=== PATIENT | female | born 1955 | race Caucasian/White ===

== ENCOUNTER 2021-05-03 12:09 | Inpatient (IN) | payer MEDICAID, MEDICARE ==
[2021-05-03] MEDS ORDERED: Sodium Chloride 0.9% 1,000 ML IV SCH (12:30)
--- NOTE | 2021-05-03 12:40 | EDM.PDOC ---
ED HPI GENERAL MEDICAL PROBLEM - General Chief Complaint: Respiratory Problem Stated Complaint: COUGH, SOB, FEVER Time Seen by Provider: 05/03/21 12:10 Source of Information: Reports: Patient History Limitations: Reports: No Limitations - History of Present Illness INITIAL COMMENTS - FREE TEXT/NARRATIVE: Patient has been ill with upper respiratory symptoms, cough, fever to 102, sinus congestion and loss of taste and smell for the last 6 days. She has been treating it with over the counter medications and tylenol. Last dose yesterday as her stomach has become upset from this and she is having dry heaves to even water. No diarrhea, no abdominal pain, and still making urine. Has not had covid, has not had vaccine. He son is also sick, but after she was. Has copd and has a rescue inhaler. Not on cpap or oxygen. 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, NSAIDS - Related Data Allergies Allergy/AdvReac Type Severity Reaction Status Date / Time No Known Allergies Allergy Verified 05/03/21 12:14 Home Meds: Home Meds atorvaSTATin Calcium [Atorvastatin Calcium] 20 mg PO DAILY 05/03/21 [History] hydroCHLOROthiazide [Hydrochlorothiazide] 25 mg PO DAILY 05/03/21 [History] Past Medical History Cardiovascular History: Reports: High Cholesterol, Hypertension Respiratory History: Reports: COPD Social & Family History - Tobacco Use Tobacco Use Status *Q: Former Tobacco User Years of Tobacco use: 30 Packs/Tins Daily: 1 Used Tobacco, but Quit: Yes Month/Year Tobacco Last Used: 2006 - Caffeine Use Caffeine Use: Reports: Coffee - Recreational Drug Use Recreational Drug Use: No Drug Use in Last 12 Months: No ED ROS GENERAL - Review of Systems Review Of Systems: See Below Constitutional: Reports: Fever, Malaise, Weakness, Fatigue, Decreased Appetite HEENT: Reports: Other (loss of smell and taste) Respiratory: Reports: Shortness of Breath, Cough. Denies: Sputum, Hemoptysis Cardiovascular: Reports: Dyspnea on Exertion, Other (chest tightness). Denies: Edema, Lightheadedness Endocrine: Reports: Fatigue GI/Abdominal: Reports: Anorexia, Decreased Appetite, Nausea, Vomiting (( dry heaves)). Denies: Constipation, Diarrhea, Difficulty Swallowing : Reports: No Symptoms Musculoskeletal: Reports: Muscle Pain Skin: Reports: No Symptoms Neurological: Denies: No Symptoms Psychiatric: Reports: No Symptoms Hematologic/Lymphatic: Reports: No Symptoms Immunologic: Reports: No Symptoms ED EXAM, GENERAL - Physical Exam Exam: See Below Exam Limited By: No Limitations General Appearance: Alert, Mild Distress Eye Exam: Bilateral Eye: EOMI, PERRL Ears: Normal External Exam, Normal Canal, Normal TMs Nose: Normal Inspection, Normal Mucosa, No Blood Throat/Mouth: Normal Inspection, Normal Lips, Normal Teeth, Normal Voice Head: Atraumatic, Normocephalic Neck: Normal Inspection, Supple, Non-Tender, Full Range of Motion Respiratory/Chest: Other (tachypnea, decreased in the bases) Cardiovascular: Regular Rate, Rhythm, Tachycardia (rate of 100 but regular) GI/Abdominal: Normal Bowel Sounds, Soft, Non-Tender Back Exam: Normal Inspection, Full Range of Motion Extremities: Normal Inspection, Normal Range of Motion, Non-Tender, No Pedal Edema, Normal Capillary Refill, Other (slight tenting of the skin) Neurological: Alert, Oriented, Normal Cognition #1 Interpretation EKG Date: 05/03/21 Time: 13:22 Rhythm: NSR Rate (Beats/Min): 95 Fielding: Normal P-Wave: Present QT: Normal EKG Interpretation Comments: flipped, flattened t in V3-6, no previous to compare to Course - Vital Signs Last Recorded V/S: Last Vital Signs Temp 37.1 C 05/03/21 12:09 Pulse 100 05/03/21 12:09 Resp 22 H 05/03/21 12:09 BP 101/68 05/03/21 12:09 Pulse Ox 98 05/03/21 13:49 - Orders/Labs/Meds Orders: Active Orders 24 hr Category Date Time Status Peripheral IV Care [RC] . DIRECTED Care 05/03/21 12:22 Active Peripheral IV Care [RC] . DIRECTED Care 05/03/21 13:34 Active Chest 2V [CR] Stat Exams 05/03/21 12:11 Taken PE Chest [Ang Chest] [CT] Stat Exams 05/03/21 13:26 Ordered BLOOD GAS ARTERIAL [BG] Stat Lab 05/03/21 12:11 Ordered CULTURE BLOOD [BC] Stat Lab 05/03/21 13:20 Received CULTURE BLOOD [BC] Stat Lab 05/03/21 13:20 Received Sodium Chloride 0.9% [Normal Saline] 1,000 ml Med 05/03/21 12:30 Active IV ASDIRECTED Sodium Chloride 0.9% [Saline Flush] Med 05/03/21 12:22 Active 10 ml FLUSH ASDIRECTED PRN Sodium Chloride 0.9% [Saline Flush] Med 05/03/21 13:34 Active 10 ml FLUSH ASDIRECTED PRN Blood Culture x2 Reflex Set [OM.PC] Stat Oth 05/03/21 12:15 Ordered Peripheral IV Insertion Adult [OM.PC] Routine Oth 05/03/21 12:22 Ordered Peripheral IV Insertion Adult [OM.PC] Routine Oth 05/03/21 13:34 Ordered Medication Orders Sodium Chloride (Normal Saline) 1,000 mls @ 1,000 mls/hr IV ASDIRECTED MARY Last Admin: 05/03/21 13:46 Dose: 1,000 mls/hr Documented by: MARIXA Sodium Chloride (Sodium Chloride 0.9% 10 Ml Syringe) 10 ml FLUSH ASDIRECTED PRN PRN Reason: Keep Vein Open Sodium Chloride (Sodium Chloride 0.9% 10 Ml Syringe) 10 ml FLUSH ASDIRECTED PRN PRN Reason: Keep Vein Open Labs: Laboratory Tests 05/03/21 05/03/21 05/03/21 Range/Units 12:30 12:30 12:30 WBC 4.8 (4.0-10.2) K/uL RBC 4.72 (3.77-5.09) M/uL Hgb 14.2 (11.7-15.5) g/dL Hct 42.3 (34.0-46.0) % MCV 89.6 (84.0-98.0) fL MCH 30.1 (28.2-33.3) pg MCHC 33.6 (31.7-36.0) g/dL RDW 13.5 (11.2-14.1) % Plt Count 139 L (150-350) K/uL Neut % (Auto) 68.9 (45.0-80.0) % Lymph % (Auto) 23.8 (10.0-50.0) % Josephine % (Auto) 7.3 (2.0-14.0) % Eos % (Auto) 0.0 (0.0-5.0) % Baso % (Auto) 0.0 (0.0-2.0) % Neut # (Auto) 3.31 (1.40-7.00) K/uL Lymph # (Auto) 1.14 (0.50-3.50) K/uL Josephine # (Auto) 0.35 (0.00-1.00) K/uL Eos # (Auto) 0.00 (0.00-0.50) K/uL Baso # (Auto) 0.00 (0.00-0.20) K/uL D-Dimer, Quantitative 613 H (0-400) ng/mL Sodium 138 (136-145) mmol/L Potassium 3.3 L (3.5-5.1) mmol/L Chloride 101 (98-107) mmol/L Carbon Dioxide 28.6 (21.0-32.0) mmol/L Anion Gap 11.7 (7-15) meq/L BUN 25 H (7-18) mg/dL Creatinine 1.32 H (0.51-1.17) mg/dL Est Cr Clr Drug Dosing 36.20 mL/min Estimated GFR (MDRD) 40 mL/min Glucose 127 H (70-99) mg/dL Lactic Acid (0.4-2.0) mmol/L Calcium 8.0 L (8.5-10.1) mg/dL Total Bilirubin 0.5 (0.2-1.0) mg/dL AST 38 H (15-37) U/L ALT 37 (12-78) U/L Alkaline Phosphatase 86 (46-116) IU/L Troponin I High Sens 16 (<=51) ng/L C-Reactive Protein 2.5 H (<=0.9) mg/dL Total Protein 7.2 (6.4-8.2) g/dL Albumin 3.3 L (3.4-5.0) g/dL SARS-CoV-2 Ag (Rapid) (NEGATIVE) 05/03/21 05/03/21 Range/Units 12:30 13:00 WBC (4.0-10.2) K/uL RBC (3.77-5.09) M/uL Hgb (11.7-15.5) g/dL Hct (34.0-46.0) % MCV (84.0-98.0) fL MCH (28.2-33.3) pg MCHC (31.7-36.0) g/dL RDW (11.2-14.1) % Plt Count (150-350) K/uL Neut % (Auto) (45.0-80.0) % Lymph % (Auto) (10.0-50.0) % Josephine % (Auto) (2.0-14.0) % Eos % (Auto) (0.0-5.0) % Baso % (Auto) (0.0-2.0) % Neut # (Auto) (1.40-7.00) K/uL Lymph # (Auto) (0.50-3.50) K/uL Josephine # (Auto) (0.00-1.00) K/uL Eos # (Auto) (0.00-0.50) K/uL Baso # (Auto) (0.00-0.20) K/uL D-Dimer, Quantitative (0-400) ng/mL Sodium (136-145) mmol/L Potassium (3.5-5.1) mmol/L Chloride (98-107) mmol/L Carbon Dioxide (21.0-32.0) mmol/L Anion Gap (7-15) meq/L BUN (7-18) mg/dL Creatinine (0.51-1.17) mg/dL Est Cr Clr Drug Dosing mL/min Estimated GFR (MDRD) mL/min Glucose (70-99) mg/dL Lactic Acid 1.3 (0.4-2.0) mmol/L Calcium (8.5-10.1) mg/dL Total Bilirubin (0.2-1.0) mg/dL AST (15-37) U/L ALT (12-78) U/L Alkaline Phosphatase (46-116) IU/L Troponin I High Sens (<=51) ng/L C-Reactive Protein (<=0.9) mg/dL Total Protein (6.4-8.2) g/dL Albumin (3.4-5.0) g/dL SARS-CoV-2 Ag (Rapid) Positive A (NEGATIVE) Meds: Medications Generic Name Dose Route Start Last Admin Trade Name Freq PRN Reason Stop Dose Admin Sodium Chloride 1,000 mls @ 1,000 mls/hr 05/03/21 12:30 05/03/21 13:46 Normal Saline IV 1,000 mls/hr ASDIRECTED MARY Administration Sodium Chloride 10 ml 05/03/21 12:22 Sodium Chloride 0.9% 10 Ml Syringe FLUSH ASDIRECTED PRN Keep Vein Open Sodium Chloride 10 ml 05/03/21 13:34 Sodium Chloride 0.9% 10 Ml Syringe FLUSH ASDIRECTED PRN Keep Vein Open Discontinued Medications Generic Name Dose Route Start Last Admin Trade Name Freq PRN Reason Stop Dose Admin Iopamidol 100 ml 05/03/21 13:37 Iopamidol 755 Mg/Ml 100 Ml Bottle IVPUSH 05/03/21 13:38 ONETIME STA - Radiology Interpretation Free Text/Narrative:: x-ray with patchy airspace opacities in the bilateral lower lungs concerning for pneumonia or aspiration, read by radiology Ct pending at time of admission - Re-Assessments/Exams Free Text/Narrative Re-Assessment/Exam: 05/03/21 13:41 Concern for COVID 19, will get rapid test. slightly dehydrated. will give IV fluids one liter bolus. Hypoxic on room air at 88% will attempt to get ABG, blood cultures x 2, will place oxygen on at 2 lpm. In isolation. ddimer is elevated will get CT PE protocol. 05/03/21 14:08 Positive for Covid 19, needs admission for decadron and remdesivir. CT angio pending at time of admission. use the ER H & P as admission H & P 05/03/21 14:15 Will also po replace potassium at admission, O2, give 5 day course of remdesivir and oral decadron. Will treat PE if positive. Departure - Departure Time of Disposition: 14:09 Disposition: Admitted As Inpatient 66 Condition: Fair Clinical Impression: Hypokalemia, Acute hypoxemic respiratory failure due to COVID-19 Clinical Impression: (Ruled Out): Hypokaluria - Discharge Information Sepsis Event Note (ED) - Evaluation Sepsis Screening Result: Possible Sepsis Risk - Focused Exam Vital Signs: Vital Signs Temp Pulse Resp BP Pulse Ox Pulse Ox 05/03/21 13:49 98 05/03/21 12:09 37.1 C 100 22 H 101/68 89 L - My Orders Last 24 Hours: My Active Orders 05/03/21 12:11 Chest 2V [CR] Stat BLOOD GAS ARTERIAL [BG] Stat 05/03/21 12:15 Blood Culture x2 Reflex Set [OM.PC] Stat 05/03/21 12:22 Peripheral IV Care [RC] . DIRECTED Sodium Chloride 0.9% [Saline Flush] 10 ml FLUSH ASDIRECTED PRN Peripheral IV Insertion Adult [OM.PC] Routine 05/03/21 12:30 Sodium Chloride 0.9% [Normal Saline] 1,000 ml IV ASDIRECTED 05/03/21 13:20 CULTURE BLOOD [BC] Stat CULTURE BLOOD [BC] Stat 05/03/21 13:26 PE Chest [Ang Chest] [CT] Stat 05/03/21 13:34 Peripheral IV Care [RC] . DIRECTED Sodium Chloride 0.9% [Saline Flush] 10 ml FLUSH ASDIRECTED PRN Peripheral IV Insertion Adult [OM.PC] Routine - Assessment/Plan Last 24 Hours: My Active Orders 05/03/21 12:11 Chest 2V [CR] Stat BLOOD GAS ARTERIAL [BG] Stat 05/03/21 12:15 Blood Culture x2 Reflex Set [OM.PC] Stat 05/03/21 12:22 Peripheral IV Care [RC] . DIRECTED Sodium Chloride 0.9% [Saline Flush] 10 ml FLUSH ASDIRECTED PRN Peripheral IV Insertion Adult [OM.PC] Routine 05/03/21 12:30 Sodium Chloride 0.9% [Normal Saline] 1,000 ml IV ASDIRECTED 05/03/21 13:20 CULTURE BLOOD [BC] Stat CULTURE BLOOD [BC] Stat 05/03/21 13:26 PE Chest [Ang Chest] [CT] Stat 05/03/21 13:34 Peripheral IV Care [RC] . DIRECTED Sodium Chloride 0.9% [Saline Flush] 10 ml FLUSH ASDIRECTED PRN Peripheral IV Insertion Adult [OM.PC] Routine
[2021-05-03] MEDS ORDERED: Sodium Chloride 0.9% 10 ML Syringe FLUSH PRN (13:34)
[2021-05-03] MEDS ORDERED: Iopamidol 755 Mg/ML 100 ML Bottle IVPUSH STA (13:37)
[2021-05-03 13:39] LABS: ANION GAP 11.7 meq/L (7-15)
[2021-05-03] MEDS ORDERED: Bisacodyl 5 MG Tab PO PRN (14:26)
[2021-05-03] MEDS ORDERED: Potassium Chloride 10 MEQ Tab.ER PO ONE (14:31)
[2021-05-03] MEDS ORDERED: REMDESIVIR 200 MG in Sodium Chloride 0.9% 250 ML IV ONE (14:31)
[2021-05-03] MEDS ORDERED: Albuterol 6.7 GM Inhaler INH PRN (14:51)
[2021-05-03] MEDS: Acetaminophen 325 MG Tab PO PRN (15:16)
[2021-05-03] MEDS: Dexamethasone 2 MG Tab PO SCH (15:17)
[2021-05-03] MEDS: Enoxaparin 40 MG/0.4 ML Syringe SUBCUT SCH (15:36)
[2021-05-03] MEDS: Sodium Chloride 0.9% 10 ML Syringe FLUSH SCH (15:37)
[2021-05-03] MEDS: Loperamide 2 MG Tab PO PRN (18:24)
[2021-05-04] MEDS: Enoxaparin 40 MG/0.4 ML Syringe SUBCUT SCH ×2 (03:29→15:42)
[2021-05-04] MEDS: Hydrochlorothiazide 25 MG Tab PO SCH (09:17)
[2021-05-04] MEDS: Acetaminophen 325 MG Tab PO PRN ×2 (09:17→23:17)
[2021-05-04] MEDS: Dexamethasone 2 MG Tab PO SCH (09:17)
[2021-05-04] MEDS: Potassium Chloride 20 MEQ Tab.ER PO SCH (09:17)
[2021-05-04] MEDS: atorvaSTATin 10 MG Tab PO SCH (09:17)
--- NOTE | 2021-05-04 12:30 | PCM.PN ---
- General Info Date of Service: 05/04/21 Admission Dx/Problem (Free Text): acute respiratory failure from covid 19 Subjective Update: Patient has had some diarrhea over night. some fevers and body aches. does desaturate with ambulation to the bathroom. Otherwise doing well. - Review of Systems General: Reports: Fever, Fatigue, Night Sweats HEENT: Reports: No Symptoms Pulmonary: Reports: Shortness of Breath, Cough. Denies: Sputum, Hemoptysis Cardiovascular: Reports: Dyspnea on Exertion. Denies: Chest Pain, Palpitations Gastrointestinal: Reports: Diarrhea Genitourinary: Reports: No Symptoms Musculoskeletal: Reports: Back Pain (upper back since prior to admission) Neurological: Reports: No Symptoms - Patient Data Vitals - Most Recent: Last Vital Signs Temp 37.1 C 05/04/21 08:00 Pulse 85 05/04/21 08:00 Resp 20 05/04/21 08:00 BP 126/93 H 05/04/21 08:00 Pulse Ox 91 L 05/04/21 08:00 Weight - Most Recent: 101.151 kg I&O - Last 24 Hours: Intake & Output 05/03/21 05/04/21 05/04/21 22:59 06:59 14:59 Intake Total 1695 Balance 1695 Lab Results Last 24 Hours: Laboratory Results - last 24 hr 05/03/21 05/03/21 05/03/21 Range/Units 12:30 12:30 12:30 WBC 4.8 (4.0-10.2) K/uL RBC 4.72 (3.77-5.09) M/uL Hgb 14.2 (11.7-15.5) g/dL Hct 42.3 (34.0-46.0) % MCV 89.6 (84.0-98.0) fL MCH 30.1 (28.2-33.3) pg MCHC 33.6 (31.7-36.0) g/dL RDW 13.5 (11.2-14.1) % Plt Count 139 L (150-350) K/uL Neut % (Auto) 68.9 (45.0-80.0) % Lymph % (Auto) 23.8 (10.0-50.0) % [place] % (Auto) 7.3 (2.0-14.0) % Eos % (Auto) 0.0 (0.0-5.0) % Baso % (Auto) 0.0 (0.0-2.0) % Neut # (Auto) 3.31 (1.40-7.00) K/uL Lymph # (Auto) 1.14 (0.50-3.50) K/uL [place] # (Auto) 0.35 (0.00-1.00) K/uL Eos # (Auto) 0.00 (0.00-0.50) K/uL Baso # (Auto) 0.00 (0.00-0.20) K/uL D-Dimer, Quantitative 613 H (0-400) ng/mL Sodium 138 (136-145) mmol/L Potassium 3.3 L (3.5-5.1) mmol/L Chloride 101 (98-107) mmol/L Carbon Dioxide 28.6 (21.0-32.0) mmol/L Anion Gap 11.7 (7-15) meq/L BUN 25 H (7-18) mg/dL Creatinine 1.32 H (0.51-1.17) mg/dL Est Cr Clr Drug Dosing 36.20 mL/min Estimated GFR (MDRD) 40 mL/min Glucose 127 H (70-99) mg/dL Lactic Acid (0.4-2.0) mmol/L Calcium 8.0 L (8.5-10.1) mg/dL Magnesium (1.8-2.4) mg/dL Total Bilirubin 0.5 (0.2-1.0) mg/dL Direct Bilirubin (0.0-0.2) mg/dL AST 38 H (15-37) U/L ALT 37 (12-78) U/L Alkaline Phosphatase 86 (46-116) IU/L Troponin I High Sens 16 (<=51) ng/L C-Reactive Protein 2.5 H (<=0.9) mg/dL Total Protein 7.2 (6.4-8.2) g/dL Albumin 3.3 L (3.4-5.0) g/dL Specimen Type Urine Color Urine Appearance Urine pH (5.0-9.0) Ur Specific [place] (1.005-1.030) Urine Protein (NEGATIVE) mg/dL Urine Glucose (UA) (NEGATIVE) mg/dL Urine Ketones (NEGATIVE) mg/dL Urine Occult Blood (NEGATIVE) Urine Nitrite (NEGATIVE) Urine Bilirubin (NEGATIVE) Urine Urobilinogen (0.2-1.0) E.U./dL Ur Leukocyte Esterase (NEGATIVE) Urine RBC /HPF Urine WBC /HPF Ur Epithelial Cells /LPF Urine Bacteria (NONE TO FEW) /HPF Urine Mucus (NEGATIVE) /LPF SARS-CoV-2 Ag (Rapid) (NEGATIVE) 05/03/21 05/03/21 05/03/21 Range/Units 12:30 13:00 16:30 WBC (4.0-10.2) K/uL RBC (3.77-5.09) M/uL Hgb (11.7-15.5) g/dL Hct (34.0-46.0) % MCV (84.0-98.0) fL MCH (28.2-33.3) pg MCHC (31.7-36.0) g/dL RDW (11.2-14.1) % Plt Count (150-350) K/uL Neut % (Auto) (45.0-80.0) % Lymph % (Auto) (10.0-50.0) % [place] % (Auto) (2.0-14.0) % Eos % (Auto) (0.0-5.0) % Baso % (Auto) (0.0-2.0) % Neut # (Auto) (1.40-7.00) K/uL Lymph # (Auto) (0.50-3.50) K/uL [place] # (Auto) (0.00-1.00) K/uL Eos # (Auto) (0.00-0.50) K/uL Baso # (Auto) (0.00-0.20) K/uL D-Dimer, Quantitative (0-400) ng/mL Sodium (136-145) mmol/L Potassium (3.5-5.1) mmol/L Chloride (98-107) mmol/L Carbon Dioxide (21.0-32.0) mmol/L Anion Gap (7-15) meq/L BUN (7-18) mg/dL Creatinine (0.51-1.17) mg/dL Est Cr Clr Drug Dosing mL/min Estimated GFR (MDRD) mL/min Glucose (70-99) mg/dL Lactic Acid 1.3 (0.4-2.0) mmol/L Calcium (8.5-10.1) mg/dL Magnesium (1.8-2.4) mg/dL Total Bilirubin (0.2-1.0) mg/dL Direct Bilirubin (0.0-0.2) mg/dL AST (15-37) U/L ALT (12-78) U/L Alkaline Phosphatase (46-116) IU/L Troponin I High Sens (<=51) ng/L C-Reactive Protein (<=0.9) mg/dL Total Protein (6.4-8.2) g/dL Albumin (3.4-5.0) g/dL Specimen Type Urincc Urine Color Yellow Urine Appearance Slightly cloudy Urine pH 6.5 (5.0-9.0) Ur Specific [place] 1.010 (1.005-1.030) Urine Protein Trace H (NEGATIVE) mg/dL Urine Glucose (UA) Negative (NEGATIVE) mg/dL Urine Ketones Negative (NEGATIVE) mg/dL Urine Occult Blood Negative (NEGATIVE) Urine Nitrite Negative (NEGATIVE) Urine Bilirubin Negative (NEGATIVE) Urine Urobilinogen 1.0 (0.2-1.0) E.U./dL Ur Leukocyte Esterase Negative (NEGATIVE) Urine RBC 0-5 /HPF Urine WBC 0-5 /HPF Ur Epithelial Cells Few /LPF Urine Bacteria Few (NONE TO FEW) /HPF Urine Mucus Few H (NEGATIVE) /LPF SARS-CoV-2 Ag (Rapid) Positive A (NEGATIVE) 05/04/21 05/04/21 Range/Units 08:10 08:10 WBC (4.0-10.2) K/uL RBC (3.77-5.09) M/uL Hgb (11.7-15.5) g/dL Hct (34.0-46.0) % MCV (84.0-98.0) fL MCH (28.2-33.3) pg MCHC (31.7-36.0) g/dL RDW (11.2-14.1) % Plt Count (150-350) K/uL Neut % (Auto) (45.0-80.0) % Lymph % (Auto) (10.0-50.0) % [place] % (Auto) (2.0-14.0) % Eos % (Auto) (0.0-5.0) % Baso % (Auto) (0.0-2.0) % Neut # (Auto) (1.40-7.00) K/uL Lymph # (Auto) (0.50-3.50) K/uL [place] # (Auto) (0.00-1.00) K/uL Eos # (Auto) (0.00-0.50) K/uL Baso # (Auto) (0.00-0.20) K/uL D-Dimer, Quantitative (0-400) ng/mL Sodium (136-145) mmol/L Potassium (3.5-5.1) mmol/L Chloride (98-107) mmol/L Carbon Dioxide (21.0-32.0) mmol/L Anion Gap (7-15) meq/L BUN (7-18) mg/dL Creatinine (0.51-1.17) mg/dL Est Cr Clr Drug Dosing mL/min Estimated GFR (MDRD) mL/min Glucose (70-99) mg/dL Lactic Acid (0.4-2.0) mmol/L Calcium (8.5-10.1) mg/dL Magnesium 2.2 (1.8-2.4) mg/dL Total Bilirubin (0.2-1.0) mg/dL Direct Bilirubin 0.1 (0.0-0.2) mg/dL AST (15-37) U/L ALT (12-78) U/L Alkaline Phosphatase (46-116) IU/L Troponin I High Sens (<=51) ng/L C-Reactive Protein (<=0.9) mg/dL Total Protein (6.4-8.2) g/dL Albumin (3.4-5.0) g/dL Specimen Type Urine Color Urine Appearance Urine pH (5.0-9.0) Ur Specific [place] (1.005-1.030) Urine Protein (NEGATIVE) mg/dL Urine Glucose (UA) (NEGATIVE) mg/dL Urine Ketones (NEGATIVE) mg/dL Urine Occult Blood (NEGATIVE) Urine Nitrite (NEGATIVE) Urine Bilirubin (NEGATIVE) Urine Urobilinogen (0.2-1.0) E.U./dL Ur Leukocyte Esterase (NEGATIVE) Urine RBC /HPF Urine WBC /HPF Ur Epithelial Cells /LPF Urine Bacteria (NONE TO FEW) /HPF Urine Mucus (NEGATIVE) /LPF SARS-CoV-2 Ag (Rapid) (NEGATIVE) Med Orders - Current: Current Medications Acetaminophen (Acetaminophen 325 Mg Tab) 650 mg PO Q4H PRN PRN Reason: Pain (Mild 1-3)/fever Last Admin: 05/04/21 09:17 Dose: 650 mg Documented by: Albuterol (Albuterol 6.7 Gm Inhaler) 0 gm INH Q2H PRN PRN Reason: Dyspnea Atorvastatin Calcium (Atorvastatin 10 Mg Tab) 20 mg PO DAILY [facility] Last Admin: 05/04/21 09:17 Dose: 20 mg Documented by: Benzonatate (Benzonatate 100 Mg Cap) 100 mg PO Q6H PRN PRN Reason: Cough Bisacodyl (Bisacodyl 5 Mg Tab) 5 mg PO DAILY PRN PRN Reason: Constipation Dexamethasone (Dexamethasone 2 Mg Tab) 6 mg PO DAILY [facility] Last Admin: 05/04/21 09:17 Dose: 6 mg Documented by: Enoxaparin Sodium (Enoxaparin 40 Mg/0.4 Ml Syringe) 40 mg SUBCUT Q12H [facility] Last Admin: 05/04/21 03:29 Dose: 40 mg Documented by: Hydrochlorothiazide (Hydrochlorothiazide 25 Mg Tab) 25 mg PO DAILY [facility] Last Admin: 05/04/21 09:17 Dose: 25 mg Documented by: Remdesivir 100 mg/ Sodium (Chloride) 100 mls @ 100 mls/hr IV Q24H [facility] Stop: 05/07/21 15:59 Loperamide HCl (Loperamide 2 Mg Tab) 2 mg PO Q4H PRN PRN Reason: Diarrhea Last Admin: 05/03/21 18:24 Dose: 2 mg Documented by: Ondansetron HCl (Ondansetron 4 Mg Tab.Dis) 4 mg PO Q4H PRN PRN Reason: Nausea/Vomiting Potassium Chloride (Potassium Chloride 20 Meq Tab.Er) 40 meq PO DAILY [facility] Last Admin: 05/04/21 09:17 Dose: 40 meq Documented by: Sodium Chloride (Sodium Chloride 0.9% 10 Ml Syringe) 10 ml FLUSH ASDIRECTED PRN PRN Reason: Keep Vein Open Sodium Chloride (Sodium Chloride 0.9% 10 Ml Syringe) 10 ml FLUSH ASDIRECTED PRN PRN Reason: Keep Vein Open Sodium Chloride (Sodium Chloride 0.9% 10 Ml Syringe) 30 ml FLUSH DAILY@1600 MARY Stop: 05/07/21 16:01 Last Admin: 05/03/21 15:37 Dose: 30 ml Documented by: Discontinued Medications Sodium Chloride (Normal Saline) 1,000 mls @ 1,000 mls/hr IV ASDIRECTED MARY Last Admin: 05/03/21 13:46 Dose: 1,000 mls/hr Documented by: Remdesivir 200 mg/ Sodium (Chloride) 250 mls @ 250 mls/hr IV ONETIME ONE Stop: 05/03/21 15:30 Last Admin: 05/03/21 15:37 Dose: 250 mls/hr Documented by: Iopamidol (Iopamidol 755 Mg/Ml 100 Ml Bottle) 100 ml IVPUSH ONETIME STA Stop: 05/03/21 13:38 Last Admin: 05/03/21 14:31 Dose: 100 ml Documented by: Potassium Chloride (Potassium Chloride 10 Meq Tab.Er) 40 meq PO ONETIME ONE Stop: 05/03/21 14:32 Last Admin: 05/03/21 15:17 Dose: 40 meq Documented by: - Exam Quality Assessment: Supplemental Oxygen (2 lpm) General: Alert, Oriented HEENT: Pupils Equal, Pupils Reactive Neck: Supple Lungs: Decreased Breath Sounds (bases) Cardiovascular: Regular Rate, Regular Rhythm GI/Abdominal Exam: Normal Bowel Sounds, Soft, Non-Tender Extremities: Normal Inspection, Normal Range of Motion, Non-Tender - Patient Data Lab Results Last 24 hrs: Laboratory Results - last 24 hr 05/03/21 05/03/21 05/03/21 Range/Units 12:30 12:30 12:30 WBC 4.8 (4.0-10.2) K/uL RBC 4.72 (3.77-5.09) M/uL Hgb 14.2 (11.7-15.5) g/dL Hct 42.3 (34.0-46.0) % MCV 89.6 (84.0-98.0) fL MCH 30.1 (28.2-33.3) pg MCHC 33.6 (31.7-36.0) g/dL RDW 13.5 (11.2-14.1) % Plt Count 139 L (150-350) K/uL Neut % (Auto) 68.9 (45.0-80.0) % Lymph % (Auto) 23.8 (10.0-50.0) % [place] % (Auto) 7.3 (2.0-14.0) % Eos % (Auto) 0.0 (0.0-5.0) % Baso % (Auto) 0.0 (0.0-2.0) % Neut # (Auto) 3.31 (1.40-7.00) K/uL Lymph # (Auto) 1.14 (0.50-3.50) K/uL [place] # (Auto) 0.35 (0.00-1.00) K/uL Eos # (Auto) 0.00 (0.00-0.50) K/uL Baso # (Auto) 0.00 (0.00-0.20) K/uL D-Dimer, Quantitative 613 H (0-400) ng/mL Sodium 138 (136-145) mmol/L Potassium 3.3 L (3.5-5.1) mmol/L Chloride 101 (98-107) mmol/L Carbon Dioxide 28.6 (21.0-32.0) mmol/L Anion Gap 11.7 (7-15) meq/L BUN 25 H (7-18) mg/dL Creatinine 1.32 H (0.51-1.17) mg/dL Est Cr Clr Drug Dosing 36.20 mL/min Estimated GFR (MDRD) 40 mL/min Glucose 127 H (70-99) mg/dL Lactic Acid (0.4-2.0) mmol/L Calcium 8.0 L (8.5-10.1) mg/dL Magnesium (1.8-2.4) mg/dL Total Bilirubin 0.5 (0.2-1.0) mg/dL Direct Bilirubin (0.0-0.2) mg/dL AST 38 H (15-37) U/L ALT 37 (12-78) U/L Alkaline Phosphatase 86 (46-116) IU/L Troponin I High Sens 16 (<=51) ng/L C-Reactive Protein 2.5 H (<=0.9) mg/dL Total Protein 7.2 (6.4-8.2) g/dL Albumin 3.3 L (3.4-5.0) g/dL Specimen Type Urine Color Urine Appearance Urine pH (5.0-9.0) Ur Specific [place] (1.005-1.030) Urine Protein (NEGATIVE) mg/dL Urine Glucose (UA) (NEGATIVE) mg/dL Urine Ketones (NEGATIVE) mg/dL Urine Occult Blood (NEGATIVE) Urine Nitrite (NEGATIVE) Urine Bilirubin (NEGATIVE) Urine Urobilinogen (0.2-1.0) E.U./dL Ur Leukocyte Esterase (NEGATIVE) Urine RBC /HPF Urine WBC /HPF Ur Epithelial Cells /LPF Urine Bacteria (NONE TO FEW) /HPF Urine Mucus (NEGATIVE) /LPF SARS-CoV-2 Ag (Rapid) (NEGATIVE) 05/03/21 05/03/21 05/03/21 Range/Units 12:30 13:00 16:30 WBC (4.0-10.2) K/uL RBC (3.77-5.09) M/uL Hgb (11.7-15.5) g/dL Hct (34.0-46.0) % MCV (84.0-98.0) fL MCH (28.2-33.3) pg MCHC (31.7-36.0) g/dL RDW (11.2-14.1) % Plt Count (150-350) K/uL Neut % (Auto) (45.0-80.0) % Lymph % (Auto) (10.0-50.0) % [place] % (Auto) (2.0-14.0) % Eos % (Auto) (0.0-5.0) % Baso % (Auto) (0.0-2.0) % Neut # (Auto) (1.40-7.00) K/uL Lymph # (Auto) (0.50-3.50) K/uL [place] # (Auto) (0.00-1.00) K/uL Eos # (Auto) (0.00-0.50) K/uL Baso # (Auto) (0.00-0.20) K/uL D-Dimer, Quantitative (0-400) ng/mL Sodium (136-145) mmol/L Potassium (3.5-5.1) mmol/L Chloride (98-107) mmol/L Carbon Dioxide (21.0-32.0) mmol/L Anion Gap (7-15) meq/L BUN (7-18) mg/dL Creatinine (0.51-1.17) mg/dL Est Cr Clr Drug Dosing mL/min Estimated GFR (MDRD) mL/min Glucose (70-99) mg/dL Lactic Acid 1.3 (0.4-2.0) mmol/L Calcium (8.5-10.1) mg/dL Magnesium (1.8-2.4) mg/dL Total Bilirubin (0.2-1.0) mg/dL Direct Bilirubin (0.0-0.2) mg/dL AST (15-37) U/L ALT (12-78) U/L Alkaline Phosphatase (46-116) IU/L Troponin I High Sens (<=51) ng/L C-Reactive Protein (<=0.9) mg/dL Total Protein (6.4-8.2) g/dL Albumin (3.4-5.0) g/dL Specimen Type Urincc Urine Color Yellow Urine Appearance Slightly cloudy Urine pH 6.5 (5.0-9.0) Ur Specific [place] 1.010 (1.005-1.030) Urine Protein Trace H (NEGATIVE) mg/dL Urine Glucose (UA) Negative (NEGATIVE) mg/dL Urine Ketones Negative (NEGATIVE) mg/dL Urine Occult Blood Negative (NEGATIVE) Urine Nitrite Negative (NEGATIVE) Urine Bilirubin Negative (NEGATIVE) Urine Urobilinogen 1.0 (0.2-1.0) E.U./dL Ur Leukocyte Esterase Negative (NEGATIVE) Urine RBC 0-5 /HPF Urine WBC 0-5 /HPF Ur Epithelial Cells Few /LPF Urine Bacteria Few (NONE TO FEW) /HPF Urine Mucus Few H (NEGATIVE) /LPF SARS-CoV-2 Ag (Rapid) Positive A (NEGATIVE) 05/04/21 05/04/21 Range/Units 08:10 08:10 WBC (4.0-10.2) K/uL RBC (3.77-5.09) M/uL Hgb (11.7-15.5) g/dL Hct (34.0-46.0) % MCV (84.0-98.0) fL MCH (28.2-33.3) pg MCHC (31.7-36.0) g/dL RDW (11.2-14.1) % Plt Count (150-350) K/uL Neut % (Auto) (45.0-80.0) % Lymph % (Auto) (10.0-50.0) % [place] % (Auto) (2.0-14.0) % Eos % (Auto) (0.0-5.0) % Baso % (Auto) (0.0-2.0) % Neut # (Auto) (1.40-7.00) K/uL Lymph # (Auto) (0.50-3.50) K/uL [place] # (Auto) (0.00-1.00) K/uL Eos # (Auto) (0.00-0.50) K/uL Baso # (Auto) (0.00-0.20) K/uL D-Dimer, Quantitative (0-400) ng/mL Sodium (136-145) mmol/L Potassium (3.5-5.1) mmol/L Chloride (98-107) mmol/L Carbon Dioxide (21.0-32.0) mmol/L Anion Gap (7-15) meq/L BUN (7-18) mg/dL Creatinine (0.51-1.17) mg/dL Est Cr Clr Drug Dosing mL/min Estimated GFR (MDRD) mL/min Glucose (70-99) mg/dL Lactic Acid (0.4-2.0) mmol/L Calcium (8.5-10.1) mg/dL Magnesium 2.2 (1.8-2.4) mg/dL Total Bilirubin (0.2-1.0) mg/dL Direct Bilirubin 0.1 (0.0-0.2) mg/dL AST (15-37) U/L ALT (12-78) U/L Alkaline Phosphatase (46-116) IU/L Troponin I High Sens (<=51) ng/L C-Reactive Protein (<=0.9) mg/dL Total Protein (6.4-8.2) g/dL Albumin (3.4-5.0) g/dL Specimen Type Urine Color Urine Appearance Urine pH (5.0-9.0) Ur Specific [place] (1.005-1.030) Urine Protein (NEGATIVE) mg/dL Urine Glucose (UA) (NEGATIVE) mg/dL Urine Ketones (NEGATIVE) mg/dL Urine Occult Blood (NEGATIVE) Urine Nitrite (NEGATIVE) Urine Bilirubin (NEGATIVE) Urine Urobilinogen (0.2-1.0) E.U./dL Ur Leukocyte Esterase (NEGATIVE) Urine RBC /HPF Urine WBC /HPF Ur Epithelial Cells /LPF Urine Bacteria (NONE TO FEW) /HPF Urine Mucus (NEGATIVE) /LPF SARS-CoV-2 Ag (Rapid) (NEGATIVE) Result Diagrams: 05/03/21 12:30 05/03/21 12:30 Sepsis Event Note - Evaluation Sepsis Screening Result: Possible Sepsis Risk - Focused Exam Vital Signs: Vital Signs Temp Pulse Resp BP Pulse Ox 05/04/21 08:00 37.1 C 85 20 126/93 H 91 L - Problem List & Annotations (1) Acute hypoxemic respiratory failure due to COVID-19 SNOMED Code(s): 371893088 Code(s): U07.1 - COVID-19; J96.01 - ACUTE RESPIRATORY FAILURE WITH HYPOXIA Status: Acute Current Visit: Yes Annotation/Comment:: stable, receiving decadron and remdesivir, isolating well (2) Hypokalemia SNOMED Code(s): 87502051 Code(s): E87.6 - HYPOKALEMIA Status: Acute Current Visit: Yes Annotation/Comment:: given oral potatssium, will recheck tomorrow - Problem List Review Problem List Initiated/Reviewed/Updated: Yes - My Orders Last 24 Hours: My Active Orders 05/03/21 12:11 Chest 2V [CR] Stat 05/03/21 12:15 Blood Culture x2 Reflex Set [OM.PC] Stat 05/03/21 12:22 Sodium Chloride 0.9% [Saline Flush] 10 ml FLUSH ASDIRECTED PRN Peripheral IV Insertion Adult [OM.PC] Routine 05/03/21 13:20 CULTURE BLOOD [BC] Stat CULTURE BLOOD [BC] Stat 05/03/21 13:26 PE Chest [Ang Chest] [CT] Stat 05/03/21 13:34 Sodium Chloride 0.9% [Saline Flush] 10 ml FLUSH ASDIRECTED PRN Peripheral IV Insertion Adult [OM.PC] Routine 05/03/21 14:12 Admission Status [Patient Status] [ADT] Routine 05/03/21 14:26 Ambulate [RC] ASDIRECTED Height and Weight [RC] DAILY May Shower [RC] ASDIRECTED Oxygen Therapy [RC] 2300 Up ad Annika [RC] ASDIRECTED VTE/DVT Education [RC] PER UNIT ROUTINE Vital Signs [RC] 08,20 Acetaminophen [TylenoL] 650 mg PO Q4H PRN Ondansetron [Zofran ODT] 4 mg PO Q4H PRN bisacodyL [Dulcolax] 5 mg PO DAILY PRN Resuscitation Status Routine 05/03/21 14:27 Notify Provider Vital Signs [RC] ASDIRECTED Pulse Oximetry [RC] CONTINUOUS 05/03/21 14:45 dexAMETHasone 6 mg PO DAILY 05/03/21 14:49 Benzonatate [Tessalon Perles] 100 mg PO Q6H PRN Isolation [COMM] Routine 05/03/21 14:51 Albuterol [Proventil HFA] See Dose Instructions INH Q2H PRN 05/03/21 16:00 Enoxaparin [Lovenox] 40 mg SUBCUT Q12H Sodium Chloride 0.9% [Saline Flush] 30 ml FLUSH DAILY@1600 05/03/21 Dinner Regular Diet [DIET] 05/03/21 17:59 Loperamide [Imodium AD] 2 mg PO Q4H PRN 05/04/21 08:00 Potassium Chloride [Klor-Con M20] 40 meq PO DAILY atorvaSTATin [Lipitor] 20 mg PO DAILY hydroCHLOROthiazide 25 mg PO DAILY 05/04/21 15:00 Remdesivir 100 mg Sodium Chloride 0.9% [Normal Saline] 100 ml IV Q24H 05/05/21 05:11 COMPREHENSIVE METABOLIC PN,CMP [CHEM] AM 05/05/21 14:45 BILIRUBIN DIRECT [CHEM] DAILY 05/06/21 05:11 COMPREHENSIVE METABOLIC PN,CMP [CHEM] AM 05/06/21 14:45 BILIRUBIN DIRECT [CHEM] DAILY 05/07/21 05:11 COMPREHENSIVE METABOLIC PN,CMP [CHEM] AM 05/07/21 14:45 BILIRUBIN DIRECT [CHEM] DAILY 05/08/21 05:11 COMPREHENSIVE METABOLIC PN,CMP [CHEM] AM - Assessment Assessment:: continue cares. Labs tomorrow. maintaining decent O2 sats - Plan Plan:: continue cares
[2021-05-04] MEDS: REMDESIVIR 100 MG in Sodium Chloride 0.9% 100 ML IV SCH (15:42)
[2021-05-04] MEDS: Sodium Chloride 0.9% 10 ML Syringe FLUSH SCH (15:43)
--- NOTE | 2021-05-05 05:44 | PCM.PN ---
- General Info Date of Service: 05/05/21 Admission Dx/Problem (Free Text): acute respiratory failure due to covid 19 Subjective Update: doing well, continues to cough,. eating, doing her incentive spirometry Functional Status: Reports: Pain Controlled, Tolerating Diet, Incentive Spirometry - Review of Systems General: Reports: Fever, Fatigue, Malaise HEENT: Reports: No Symptoms Pulmonary: Reports: Shortness of Breath, Cough Cardiovascular: Reports: Dyspnea on Exertion Gastrointestinal: Reports: No Symptoms Genitourinary: Reports: No Symptoms Musculoskeletal: Reports: No Symptoms Neurological: Reports: No Symptoms Psychiatric: Reports: No Symptoms - Patient Data Vitals - Most Recent: Last Vital Signs Temp 37.0 C 05/04/21 20:00 Pulse 67 05/04/21 20:00 Resp 18 05/04/21 20:00 BP 132/66 05/04/21 20:00 Pulse Ox 95 05/04/21 20:00 Weight - Most Recent: 101.151 kg I&O - Last 24 Hours: Intake & Output 05/04/21 05/04/21 05/05/21 14:59 22:59 06:59 Intake Total 85 Balance 85 Lab Results Last 24 Hours: Laboratory Results - last 24 hr 05/04/21 05/04/21 Range/Units 08:10 08:10 Magnesium 2.2 (1.8-2.4) mg/dL Direct Bilirubin 0.1 (0.0-0.2) mg/dL [place]att Results Last 24 Hours: Microbiology 05/03/21 13:20 Aerobic Blood Culture - Preliminary Blood - Venous NO GROWTH AFTER 1 DAY Anaerobic Blood Culture - Preliminary NO GROWTH AFTER 1 DAY 05/03/21 13:20 Aerobic Blood Culture - Preliminary Blood - Venous - Lab Draw NO GROWTH AFTER 1 DAY Anaerobic Blood Culture - Preliminary NO GROWTH AFTER 1 DAY Med Orders - Current: Current Medications Acetaminophen (Acetaminophen 325 Mg Tab) 650 mg PO Q4H PRN PRN Reason: Pain (Mild 1-3)/fever Last Admin: 05/04/21 23:17 Dose: 650 mg Documented by: Albuterol (Albuterol 6.7 Gm Inhaler) 0 gm INH Q2H PRN PRN Reason: Dyspnea Atorvastatin Calcium (Atorvastatin 10 Mg Tab) 20 mg PO DAILY [facility]ARY Last Admin: 05/04/21 09:17 Dose: 20 mg Documented by: Benzonatate (Benzonatate 100 Mg Cap) 100 mg PO Q6H PRN PRN Reason: Cough Bisacodyl (Bisacodyl 5 Mg Tab) 5 mg PO DAILY PRN PRN Reason: Constipation Dexamethasone (Dexamethasone 2 Mg Tab) 6 mg PO DAILY [facility] Last Admin: 05/04/21 09:17 Dose: 6 mg Documented by: Enoxaparin Sodium (Enoxaparin 40 Mg/0.4 Ml Syringe) 40 mg SUBCUT Q12H [facility] Hydrochlorothiazide (Hydrochlorothiazide 25 Mg Tab) 25 mg PO DAILY [facility] Last Admin: 05/04/21 09:17 Dose: 25 mg Documented by: Remdesivir 100 mg/ Sodium (Chloride) 100 mls @ 100 mls/hr IV Q24H [facility] Stop: 05/07/21 15:59 Last Admin: 05/04/21 15:42 Dose: 100 mls/hr Documented by: Loperamide HCl (Loperamide 2 Mg Tab) 2 mg PO Q4H PRN PRN Reason: Diarrhea Last Admin: 05/03/21 18:24 Dose: 2 mg Documented by: Ondansetron HCl (Ondansetron 4 Mg Tab.Dis) 4 mg PO Q4H PRN PRN Reason: Nausea/Vomiting Potassium Chloride (Potassium Chloride 20 Meq Tab.Er) 40 meq PO DAILY [facility] Last Admin: 05/04/21 09:17 Dose: 40 meq Documented by: Sodium Chloride (Sodium Chloride 0.9% 10 Ml Syringe) 10 ml FLUSH ASDIRECTED PRN PRN Reason: Keep Vein Open Sodium Chloride (Sodium Chloride 0.9% 10 Ml Syringe) 10 ml FLUSH ASDIRECTED PRN PRN Reason: Keep Vein Open Sodium Chloride (Sodium Chloride 0.9% 10 Ml Syringe) 30 ml FLUSH DAILY@1600 [facility] Stop: 05/07/21 16:01 Last Admin: 05/04/21 15:43 Dose: 30 ml Documented by: Discontinued Medications Enoxaparin Sodium (Enoxaparin 40 Mg/0.4 Ml Syringe) 40 mg SUBCUT Q12H [facility] Last Admin: 05/04/21 15:42 Dose: 40 mg Documented by: Sodium Chloride (Normal Saline) 1,000 mls @ 1,000 mls/hr IV ASDIRECTED [facility] Last Admin: 05/03/21 13:46 Dose: 1,000 mls/hr Documented by: Remdesivir 200 mg/ Sodium (Chloride) 250 mls @ 250 mls/hr IV ONETIME ONE Stop: 05/03/21 15:30 Last Admin: 05/03/21 15:37 Dose: 250 mls/hr Documented by: Iopamidol (Iopamidol 755 Mg/Ml 100 Ml Bottle) 100 ml IVPUSH ONETIME STA Stop: 05/03/21 13:38 Last Admin: 05/03/21 14:31 Dose: 100 ml Documented by: Potassium Chloride (Potassium Chloride 10 Meq Tab.Er) 40 meq PO ONETIME ONE Stop: 05/03/21 14:32 Last Admin: 05/03/21 15:17 Dose: 40 meq Documented by: - Exam Quality Assessment: Supplemental Oxygen General: Alert, Oriented HEENT: Pupils Equal, Pupils Reactive Neck: Supple Lungs: Decreased Breath Sounds (minimal bases), Wheezing (minimal) Cardiovascular: Regular Rate, Regular Rhythm GI/Abdominal Exam: Normal Bowel Sounds, Soft, Non-Tender Extremities: Normal Inspection, No Pedal Edema - Patient Data Lab Results Last 24 hrs: Laboratory Results - last 24 hr 05/04/21 05/04/21 Range/Units 08:10 08:10 Magnesium 2.2 (1.8-2.4) mg/dL Direct Bilirubin 0.1 (0.0-0.2) mg/dL Result Diagrams: 05/03/21 12:30 05/03/21 12:30 [place]att Results Last 24 hrs: Microbiology 05/03/21 13:20 Aerobic Blood Culture - Preliminary Blood - Venous NO GROWTH AFTER 1 DAY Anaerobic Blood Culture - Preliminary NO GROWTH AFTER 1 DAY 05/03/21 13:20 Aerobic Blood Culture - Preliminary Blood - Venous - Lab Draw NO GROWTH AFTER 1 DAY Anaerobic Blood Culture - Preliminary NO GROWTH AFTER 1 DAY Sepsis Event Note - Evaluation Sepsis Screening Result: No Definite Risk - Focused Exam Vital Signs: Vital Signs Temp Pulse Resp BP Pulse Ox 05/04/21 20:00 37.0 C 67 18 132/66 95 - Problem List & Annotations (1) Acute hypoxemic respiratory failure due to COVID-19 SNOMED Code(s): 200171866 Code(s): U07.1 - COVID-19; J96.01 - ACUTE RESPIRATORY FAILURE WITH HYPOXIA Status: Acute Current Visit: Yes Annotation/Comment:: 05/05/2021 doing well, no increase oxygen needs. check labs today for concern for LFT changes stable, receiving decadron and remdesivir, isolating well (2) Hypokalemia SNOMED Code(s): 93216288 Code(s): E87.6 - HYPOKALEMIA Status: Acute Current Visit: Yes Annotation/Comment:: 05/05/2021 doing well, recheck today given oral potatssium, will recheck tomorrow - Problem List Review Problem List Initiated/Reviewed/Updated: Yes - My Orders Last 24 Hours: My Active Orders 05/04/21 08:00 Potassium Chloride [Klor-Con M20] 40 meq PO DAILY atorvaSTATin [Lipitor] 20 mg PO DAILY hydroCHLOROthiazide 25 mg PO DAILY 05/04/21 15:00 Remdesivir 100 mg Sodium Chloride 0.9% [Normal Saline] 100 ml IV Q24H 05/05/21 05:11 COMPREHENSIVE METABOLIC PN,CMP [CHEM] AM 05/05/21 08:00 Enoxaparin [Lovenox] 40 mg SUBCUT Q12H 05/05/21 14:45 BILIRUBIN DIRECT [CHEM] DAILY 05/06/21 05:11 COMPREHENSIVE METABOLIC PN,CMP [CHEM] AM 05/06/21 14:45 BILIRUBIN DIRECT [CHEM] DAILY 05/07/21 05:11 COMPREHENSIVE METABOLIC PN,CMP [CHEM] AM 05/07/21 14:45 BILIRUBIN DIRECT [CHEM] DAILY 05/08/21 05:11 COMPREHENSIVE METABOLIC PN,CMP [CHEM] AM - Assessment Assessment:: 05/05/2021 labs today, continue cares. Plan for home on 05/07, will need home O2 continue cares. Labs tomorrow. maintaining decent O2 sats - Plan Plan:: 05/05/2021 continue cares, plan for home o2 after 5th dose of remdesivir continue cares
[2021-05-05] MEDS: Dexamethasone 2 MG Tab PO SCH (08:14)
[2021-05-05] MEDS: Acetaminophen 325 MG Tab PO PRN ×4 (08:15→21:33)
[2021-05-05] MEDS: atorvaSTATin 10 MG Tab PO SCH (08:15)
[2021-05-05] MEDS: Hydrochlorothiazide 25 MG Tab PO SCH (08:15)
[2021-05-05] MEDS: Potassium Chloride 20 MEQ Tab.ER PO SCH (08:15)
[2021-05-05] MEDS: Enoxaparin 40 MG/0.4 ML Syringe SUBCUT SCH ×2 (08:16→21:34)
[2021-05-05] MEDS: Sodium Chloride 0.9% 10 ML Syringe FLUSH PRN ×2 (08:20→14:51)
[2021-05-05] MEDS: Benzonatate 100 MG Cap PO PRN ×3 (08:30→21:34)
[2021-05-05 08:31] LABS: ANION GAP 7.2 meq/L (7-15)
[2021-05-05] MEDS: REMDESIVIR 100 MG in Sodium Chloride 0.9% 100 ML IV SCH (14:50)
[2021-05-05] MEDS: Sodium Chloride 0.9% 10 ML Syringe FLUSH SCH (15:00)
[2021-05-06] MEDS: Benzonatate 100 MG Cap PO PRN ×3 (03:21→15:18)
[2021-05-06] MEDS: Acetaminophen 325 MG Tab PO PRN ×3 (03:21→15:18)
[2021-05-06] MEDS: Ondansetron 4 MG Tab.DIS PO PRN ×2 (03:26→20:33)
[2021-05-06] MEDS: Dexamethasone 2 MG Tab PO SCH (08:30)
[2021-05-06] MEDS: Enoxaparin 40 MG/0.4 ML Syringe SUBCUT SCH ×2 (08:30→20:27)
[2021-05-06] MEDS: Hydrochlorothiazide 25 MG Tab PO SCH (08:30)
[2021-05-06] MEDS: atorvaSTATin 10 MG Tab PO SCH (08:30)
[2021-05-06] MEDS: Potassium Chloride 20 MEQ Tab.ER PO SCH (08:30)
--- NOTE | 2021-05-06 08:39 | PCM.PN ---
- General Info Date of Service: 05/06/21 Admission Dx/Problem (Free Text): acute respiratory failure from COVID 19 Subjective Update: Patient has been slowly improving. using her incentive spirometer, cough is still tight but improves with breathing treatments. No fevers. Oxygen saturation staying close to 90 with ambulation which is an improvement from 84%. She is on day 4 of redemisvir and decadron. having headaches that are not completely taken care of by tylenol. otherwise stable - Review of Systems General: Reports: Weakness, Fatigue. Denies: Fever HEENT: Reports: Headaches, Sinus Congestion. Denies: Visual Changes Pulmonary: Reports: Shortness of Breath, Pleuritic Chest Pain, Cough, Wheezing Cardiovascular: Reports: Dyspnea on Exertion (improving). Denies: Chest Pain, Palpitations Gastrointestinal: Reports: No Symptoms Genitourinary: Reports: No Symptoms Musculoskeletal: Reports: Other (myalgias) Skin: Reports: No Symptoms Neurological: Reports: Headache, Other (continued loss of smell and taste). Denies: Confusion, Dizziness, Paresthesia, Seizure, Syncope - Patient Data Vitals - Most Recent: Last Vital Signs Temp 36.7 C 05/06/21 03:25 Pulse 69 05/06/21 03:25 Resp 18 05/05/21 20:00 BP 126/51 L 05/06/21 03:25 Pulse Ox 92 L 05/06/21 03:25 Weight - Most Recent: 101.151 kg I&O - Last 24 Hours: Intake & Output 05/05/21 05/06/21 05/06/21 22:59 06:59 14:59 Intake Total 100 300 Output Total 300 500 Balance -200 -200 Lab Results Last 24 Hours: Laboratory Results - last 24 hr 05/06/21 Range/Units 08:03 WBC 6.9 (4.0-10.2) K/uL RBC 4.60 (3.77-5.09) M/uL Hgb 13.8 (11.7-15.5) g/dL Hct 41.7 (34.0-46.0) % MCV 90.7 (84.0-98.0) fL MCH 30.0 (28.2-33.3) pg MCHC 33.1 (31.7-36.0) g/dL RDW 13.4 (11.2-14.1) % Plt Count 185 (150-350) K/uL Neut % (Auto) 68.0 (45.0-80.0) % Lymph % (Auto) 23.8 (10.0-50.0) % Shelby % (Auto) 8.2 (2.0-14.0) % Eos % (Auto) 0.0 (0.0-5.0) % Baso % (Auto) 0.0 (0.0-2.0) % Neut # (Auto) 4.66 (1.40-7.00) K/uL Lymph # (Auto) 1.63 (0.50-3.50) K/uL Shelby # (Auto) 0.56 (0.00-1.00) K/uL Eos # (Auto) 0.00 (0.00-0.50) K/uL Baso # (Auto) 0.00 (0.00-0.20) K/uL [facility]att Results Last 24 Hours: Microbiology 05/03/21 13:20 Aerobic Blood Culture - Preliminary Blood - Venous NO GROWTH AFTER 2 DAYS Anaerobic Blood Culture - Preliminary NO GROWTH AFTER 2 DAYS 05/03/21 13:20 Aerobic Blood Culture - Preliminary Blood - Venous - Lab Draw NO GROWTH AFTER 2 DAYS Anaerobic Blood Culture - Preliminary NO GROWTH AFTER 2 DAYS Med Orders - Current: Current Medications Acetaminophen (Acetaminophen 325 Mg Tab) 650 mg PO Q4H PRN PRN Reason: Pain (Mild 1-3)/fever Last Admin: 05/06/21 08:31 Dose: 650 mg Documented by: Albuterol (Albuterol 6.7 Gm Inhaler) 0 gm INH Q2H PRN PRN Reason: Dyspnea Atorvastatin Calcium (Atorvastatin 10 Mg Tab) 20 mg PO DAILY [facility] Last Admin: 05/06/21 08:30 Dose: 20 mg Documented by: Benzonatate (Benzonatate 100 Mg Cap) 100 mg PO Q6H PRN PRN Reason: Cough Last Admin: 05/06/21 03:21 Dose: 100 mg Documented by: Bisacodyl (Bisacodyl 5 Mg Tab) 5 mg PO DAILY PRN PRN Reason: Constipation Dexamethasone (Dexamethasone 2 Mg Tab) 6 mg PO DAILY [facility] Last Admin: 05/06/21 08:30 Dose: 6 mg Documented by: Enoxaparin Sodium (Enoxaparin 40 Mg/0.4 Ml Syringe) 40 mg SUBCUT Q12H [facility] Last Admin: 05/06/21 08:30 Dose: 40 mg Documented by: Hydrochlorothiazide (Hydrochlorothiazide 25 Mg Tab) 25 mg PO DAILY [facility] Last Admin: 05/06/21 08:30 Dose: 25 mg Documented by: Remdesivir 100 mg/ Sodium (Chloride) 100 mls @ 100 mls/hr IV Q24H [facility] Stop: 05/07/21 15:59 Last Admin: 05/05/21 14:50 Dose: 100 mls/hr Documented by: Ibuprofen (Ibuprofen 400 Mg Tab) 400 mg PO Q6H PRN PRN Reason: Pain Loperamide HCl (Loperamide 2 Mg Tab) 2 mg PO Q4H PRN PRN Reason: Diarrhea Last Admin: 05/03/21 18:24 Dose: 2 mg Documented by: Ondansetron HCl (Ondansetron 4 Mg Tab.Dis) 4 mg PO Q4H PRN PRN Reason: Nausea/Vomiting Last Admin: 05/06/21 03:26 Dose: 4 mg Documented by: Potassium Chloride (Potassium Chloride 20 Meq Tab.Er) 40 meq PO DAILY [facility] Last Admin: 05/06/21 08:30 Dose: 40 meq Documented by: Sodium Chloride (Sodium Chloride 0.9% 10 Ml Syringe) 10 ml FLUSH ASDIRECTED PRN PRN Reason: Keep Vein Open Last Admin: 05/05/21 14:51 Dose: 10 ml Documented by: Sodium Chloride (Sodium Chloride 0.9% 10 Ml Syringe) 10 ml FLUSH ASDIRECTED PRN PRN Reason: Keep Vein Open Sodium Chloride (Sodium Chloride 0.9% 10 Ml Syringe) 30 ml FLUSH DAILY@1600 [facility] Stop: 05/07/21 16:01 Last Admin: 05/05/21 15:00 Dose: 30 ml Documented by: Discontinued Medications Enoxaparin Sodium (Enoxaparin 40 Mg/0.4 Ml Syringe) 40 mg SUBCUT Q12H [facility] Last Admin: 05/04/21 15:42 Dose: 40 mg Documented by: Sodium Chloride (Normal Saline) 1,000 mls @ 1,000 mls/hr IV ASDIRECTED [facility] Last Admin: 05/03/21 13:46 Dose: 1,000 mls/hr Documented by: Remdesivir 200 mg/ Sodium (Chloride) 250 mls @ 250 mls/hr IV ONETIME ONE Stop: 05/03/21 15:30 Last Admin: 05/03/21 15:37 Dose: 250 mls/hr Documented by: Iopamidol (Iopamidol 755 Mg/Ml 100 Ml Bottle) 100 ml IVPUSH ONETIME STA Stop: 05/03/21 13:38 Last Admin: 05/03/21 14:31 Dose: 100 ml Documented by: Potassium Chloride (Potassium Chloride 10 Meq Tab.Er) 40 meq PO ONETIME ONE Stop: 05/03/21 14:32 Last Admin: 05/03/21 15:17 Dose: 40 meq Documented by: - Exam Quality Assessment: Supplemental Oxygen General: Alert, Oriented, Cooperative, Mild Distress HEENT: Pupils Equal, Pupils Reactive Neck: Supple Lungs: Decreased Breath Sounds (bases), Wheezing (clears a little with coughing) Cardiovascular: Regular Rate GI/Abdominal Exam: Normal Bowel Sounds Back Exam: Normal Inspection, Full Range of Motion Extremities: Normal Inspection, Non-Tender, No Pedal Edema Skin: Warm, Intact Psy/Mental Status: Alert, Normal Affect, Normal Mood - Patient Data Lab Results Last 24 hrs: Laboratory Results - last 24 hr 05/06/21 Range/Units 08:03 WBC 6.9 (4.0-10.2) K/uL RBC 4.60 (3.77-5.09) M/uL Hgb 13.8 (11.7-15.5) g/dL Hct 41.7 (34.0-46.0) % MCV 90.7 (84.0-98.0) fL MCH 30.0 (28.2-33.3) pg MCHC 33.1 (31.7-36.0) g/dL RDW 13.4 (11.2-14.1) % Plt Count 185 (150-350) K/uL Neut % (Auto) 68.0 (45.0-80.0) % Lymph % (Auto) 23.8 (10.0-50.0) % Shelby % (Auto) 8.2 (2.0-14.0) % Eos % (Auto) 0.0 (0.0-5.0) % Baso % (Auto) 0.0 (0.0-2.0) % Neut # (Auto) 4.66 (1.40-7.00) K/uL Lymph # (Auto) 1.63 (0.50-3.50) K/uL Shelby # (Auto) 0.56 (0.00-1.00) K/uL Eos # (Auto) 0.00 (0.00-0.50) K/uL Baso # (Auto) 0.00 (0.00-0.20) K/uL Result Diagrams: 05/06/21 08:03 05/05/21 07:49 [facility]att Results Last 24 hrs: Microbiology 05/03/21 13:20 Aerobic Blood Culture - Preliminary Blood - Venous NO GROWTH AFTER 2 DAYS Anaerobic Blood Culture - Preliminary NO GROWTH AFTER 2 DAYS 05/03/21 13:20 Aerobic Blood Culture - Preliminary Blood - Venous - Lab Draw NO GROWTH AFTER 2 DAYS Anaerobic Blood Culture - Preliminary NO GROWTH AFTER 2 DAYS Sepsis Event Note - Evaluation Sepsis Screening Result: No Definite Risk - Focused Exam Vital Signs: Vital Signs Temp Pulse BP Pulse Ox 05/06/21 03:25 36.7 C 69 126/51 L 92 L - Problem List & Annotations (1) Acute hypoxemic respiratory failure due to COVID-19 SNOMED Code(s): 177726429 Code(s): U07.1 - COVID-19; J96.01 - ACUTE RESPIRATORY FAILURE WITH HYPOXIA Status: Acute Current Visit: Yes Annotation/Comment:: 05/06/2021 improving, less desatuation with ambulating. Good while in bed and sleepiing at 2 lpm. Will attempt a few trials of oxygen off today. Have talked with discharge planning about home oxygen. continue other cares. Day 4 of r emdesivir and decadron treatment, plan for home discharge tomorrow after treatment 05/05/2021 doing well, no increase oxygen needs. check labs today for concern for LFT changes stable, receiving decadron and remdesivir, isolating well (2) Hypokalemia SNOMED Code(s): 34686896 Code(s): E87.6 - HYPOKALEMIA Status: Acute Current Visit: Yes Annotation/Comment:: 05/06/2021 stable 05/05/2021 doing well, recheck today given oral potatssium, will recheck tomorrow - Problem List Review Problem List Initiated/Reviewed/Updated: Yes - My Orders Last 24 Hours: My Active Orders 05/05/21 08:00 Enoxaparin [Lovenox] 40 mg SUBCUT Q12H 05/06/21 05:11 Chest 1V Frontal [CR] AM 05/06/21 08:03 BILIRUBIN DIRECT [CHEM] Routine COMPREHENSIVE METABOLIC PN,CMP [CHEM] AM 05/06/21 08:31 Ibuprofen [Motrin] 400 mg PO Q6H PRN 05/07/21 05:11 COMPREHENSIVE METABOLIC PN,CMP [CHEM] AM 05/07/21 14:45 BILIRUBIN DIRECT [CHEM] DAILY 05/08/21 05:11 COMPREHENSIVE METABOLIC PN,CMP [CHEM] AM - Assessment Assessment:: 05/06/2021. doing well, add motrin for headaches, trial off of oxygen if possible for short amounts today 05/05/2021 labs today, continue cares. Plan for home on 05/07, will need home O2 continue cares. Labs tomorrow. maintaining decent O2 sats - Plan Plan:: 05/06/2021 continue cares, trial off oxygen some today. plan for discharge tomorrow, possibly with home o2. 05/05/2021 continue cares, plan for home o2 after 5th dose of remdesivir continue cares
[2021-05-06 08:45] LABS: ANION GAP 7.3 meq/L (7-15)
[2021-05-06] MEDS: Ibuprofen 400 MG Tab PO PRN ×2 (08:45→20:33)
[2021-05-06] MEDS: REMDESIVIR 100 MG in Sodium Chloride 0.9% 100 ML IV SCH (15:18)
[2021-05-06] MEDS: Sodium Chloride 0.9% 10 ML Syringe FLUSH PRN (15:19)
[2021-05-06] MEDS: Sodium Chloride 0.9% 10 ML Syringe FLUSH SCH (17:51)
[2021-05-07] MEDS: Acetaminophen 325 MG Tab PO PRN (03:43)
[2021-05-07] MEDS: Benzonatate 100 MG Cap PO PRN ×2 (03:44→12:37)
[2021-05-07] MEDS: Dexamethasone 2 MG Tab PO SCH (07:59)
[2021-05-07] MEDS: Enoxaparin 40 MG/0.4 ML Syringe SUBCUT SCH ×2 (08:00→19:26)
[2021-05-07] MEDS: Potassium Chloride 20 MEQ Tab.ER PO SCH (08:00)
[2021-05-07] MEDS: Hydrochlorothiazide 25 MG Tab PO SCH (08:00)
[2021-05-07] MEDS: atorvaSTATin 10 MG Tab PO SCH (08:00)
[2021-05-07] MEDS: Sodium Chloride 0.9% 10 ML Syringe FLUSH PRN (08:01)
[2021-05-07 08:03] LABS: ANION GAP 6.4 meq/L (7-15)
[2021-05-07] MEDS: Loperamide 2 MG Tab PO PRN (12:37)
[2021-05-07] MEDS: REMDESIVIR 100 MG in Sodium Chloride 0.9% 100 ML IV SCH (13:59)
[2021-05-07] MEDS: Sodium Chloride 0.9% 10 ML Syringe FLUSH SCH (15:01)
--- NOTE | 2021-05-07 18:48 | PCM.PN ---
- General Info Date of Service: 05/07/21 Admission Dx/Problem (Free Text): 1)Acute Respiratory Failure 2)COVID 19 Subjective Update: Patient received Day#5 of Remdesivir and Decadron. She is still coughing and her course is complicated with the fact that she is now getting up to the bathroom f requently with diarrhea since she had take the anti-viral and she desats in the 85-86% range. She is using hte incentive spirometer, but cannot be off the oxygen for any extended period of time. Staff are working with Home [facility] to set up home oxygen. - Review of Systems General: Reports: Weakness, Fatigue HEENT: Reports: No Symptoms Pulmonary: Reports: Shortness of Breath, Cough Cardiovascular: Reports: No Symptoms Gastrointestinal: Reports: Diarrhea Genitourinary: Reports: No Symptoms Musculoskeletal: Reports: No Symptoms Skin: Reports: No Symptoms Neurological: Reports: No Symptoms Psychiatric: Reports: No Symptoms - Patient Data Vitals - Most Recent: Last Vital Signs Temp 36.4 C 05/07/21 07:57 Pulse 77 05/07/21 07:57 Resp 18 05/07/21 07:57 BP 132/80 05/07/21 07:57 Pulse Ox 93 L 05/07/21 09:28 Weight - Most Recent: 99.79 kg I&O - Last 24 Hours: Intake & Output 05/07/21 05/07/21 05/07/21 06:59 14:59 22:59 Intake Total 730 90 Balance 730 90 Lab Results Last 24 Hours: Laboratory Results - last 24 hr 05/07/21 05/07/21 Range/Units 07:17 07:37 Sodium 142 (136-145) mmol/L Potassium 4.7 (3.5-5.1) mmol/L Chloride 107 (98-107) mmol/L Carbon Dioxide 28.6 (21.0-32.0) mmol/L Anion Gap 6.4 L (7-15) meq/L BUN 28 H (7-18) mg/dL Creatinine 1.10 (0.51-1.17) mg/dL Est Cr Clr Drug Dosing 43.44 mL/min Estimated GFR (MDRD) 50 mL/min Glucose 116 H (70-99) mg/dL Calcium 8.0 L (8.5-10.1) mg/dL Total Bilirubin 0.4 (0.2-1.0) mg/dL Direct Bilirubin 0.1 (0.0-0.2) mg/dL AST 26 (15-37) U/L ALT 28 (12-78) U/L Alkaline Phosphatase 77 (46-116) IU/L Total Protein 6.2 L (6.4-8.2) g/dL Albumin 2.8 L (3.4-5.0) g/dL [facility] Results Last 24 Hours: Microbiology 05/03/21 13:20 Aerobic Blood Culture - Preliminary Blood - Venous NO GROWTH AFTER 4 DAYS Anaerobic Blood Culture - Preliminary NO GROWTH AFTER 4 DAYS 05/03/21 13:20 Aerobic Blood Culture - Preliminary Blood - Venous - Lab Draw NO GROWTH AFTER 4 DAYS Anaerobic Blood Culture - Preliminary NO GROWTH AFTER 4 DAYS Med Orders - Current: Current Medications Acetaminophen (Acetaminophen 325 Mg Tab) 650 mg PO Q4H PRN PRN Reason: Pain (Mild 1-3)/fever Last Admin: 05/07/21 03:43 Dose: 650 mg Documented by: Albuterol (Albuterol 6.7 Gm Inhaler) 0 gm INH Q2H PRN PRN Reason: Dyspnea Atorvastatin Calcium (Atorvastatin 10 Mg Tab) 20 mg PO DAILY [facility] Last Admin: 05/07/21 08:00 Dose: 20 mg Documented by: Benzonatate (Benzonatate 100 Mg Cap) 100 mg PO Q6H PRN PRN Reason: Cough Last Admin: 05/07/21 12:37 Dose: 100 mg Documented by: Bisacodyl (Bisacodyl 5 Mg Tab) 5 mg PO DAILY PRN PRN Reason: Constipation Dexamethasone (Dexamethasone 2 Mg Tab) 6 mg PO DAILY [facility] Last Admin: 05/07/21 07:59 Dose: 6 mg Documented by: Enoxaparin Sodium (Enoxaparin 40 Mg/0.4 Ml Syringe) 40 mg SUBCUT Q12H [facility] Last Admin: 05/07/21 08:00 Dose: 40 mg Documented by: Hydrochlorothiazide (Hydrochlorothiazide 25 Mg Tab) 25 mg PO DAILY [facility] Last Admin: 05/07/21 08:00 Dose: 25 mg Documented by: Ibuprofen (Ibuprofen 400 Mg Tab) 400 mg PO Q6H PRN PRN Reason: Pain Last Admin: 05/06/21 20:33 Dose: 400 mg Documented by: Loperamide HCl (Loperamide 2 Mg Tab) 2 mg PO Q4H PRN PRN Reason: Diarrhea Last Admin: 05/07/21 12:37 Dose: 2 mg Documented by: Ondansetron HCl (Ondansetron 4 Mg Tab.Dis) 4 mg PO Q4H PRN PRN Reason: Nausea/Vomiting Last Admin: 05/06/21 20:33 Dose: 4 mg Documented by: Potassium Chloride (Potassium Chloride 20 Meq Tab.Er) 40 meq PO DAILY [facility] Last Admin: 05/07/21 08:00 Dose: 40 meq Documented by: Sodium Chloride (Sodium Chloride 0.9% 10 Ml Syringe) 10 ml FLUSH ASDIRECTED PRN PRN Reason: Keep Vein Open Last Admin: 05/07/21 08:01 Dose: 10 ml Documented by: Sodium Chloride (Sodium Chloride 0.9% 10 Ml Syringe) 10 ml FLUSH ASDIRECTED PRN PRN Reason: Keep Vein Open Discontinued Medications Enoxaparin Sodium (Enoxaparin 40 Mg/0.4 Ml Syringe) 40 mg SUBCUT Q12H [facility] Last Admin: 05/04/21 15:42 Dose: 40 mg Documented by: Sodium Chloride (Normal Saline) 1,000 mls @ 1,000 mls/hr IV ASDIRECTED MARY Last Admin: 05/03/21 13:46 Dose: 1,000 mls/hr Documented by: Remdesivir 200 mg/ Sodium (Chloride) 250 mls @ 250 mls/hr IV ONETIME ONE Stop: 05/03/21 15:30 Last Admin: 05/03/21 15:37 Dose: 250 mls/hr Documented by: Remdesivir 100 mg/ Sodium (Chloride) 100 mls @ 100 mls/hr IV Q24H MARY Stop: 05/07/21 15:59 Last Admin: 05/07/21 13:59 Dose: 100 mls/hr Documented by: Iopamidol (Iopamidol 755 Mg/Ml 100 Ml Bottle) 100 ml IVPUSH ONETIME STA Stop: 05/03/21 13:38 Last Admin: 05/03/21 14:31 Dose: 100 ml Documented by: Potassium Chloride (Potassium Chloride 10 Meq Tab.Er) 40 meq PO ONETIME ONE Stop: 05/03/21 14:32 Last Admin: 05/03/21 15:17 Dose: 40 meq Documented by: Sodium Chloride (Sodium Chloride 0.9% 10 Ml Syringe) 30 ml FLUSH DAILY@1600 [facility]ARY Stop: 05/07/21 16:01 Last Admin: 05/07/21 15:01 Dose: 30 ml Documented by: - Exam General: Alert, Oriented, Cooperative (Elderly female, pleaseant. 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 Moist/[place] Neck: Supple Lungs: Normal Respiratory Effort, Decreased Breath Sounds (Throughout, harsh loose cough noted.) Cardiovascular: Regular Rate, Regular Rhythm GI/Abdominal Exam: Normal Bowel Sounds, Soft, Non-Tender (Female) Exam: Deferred Extremities: Normal Inspection, Normal Range of Motion, Normal Capillary Refill Skin: Warm, Dry, Intact Neurological: No New Focal Deficit Psy/Mental Status: Alert, Normal Affect, Normal Mood - Patient Data Lab Results Last 24 hrs: Laboratory Results - last 24 hr 05/07/21 05/07/21 Range/Units 07:17 07:37 Sodium 142 (136-145) mmol/L Potassium 4.7 (3.5-5.1) mmol/L Chloride 107 (98-107) mmol/L Carbon Dioxide 28.6 (21.0-32.0) mmol/L Anion Gap 6.4 L (7-15) meq/L BUN 28 H (7-18) mg/dL Creatinine 1.10 (0.51-1.17) mg/dL Est Cr Clr Drug Dosing 43.44 mL/min Estimated GFR (MDRD) 50 mL/min Glucose 116 H (70-99) mg/dL Calcium 8.0 L (8.5-10.1) mg/dL Total Bilirubin 0.4 (0.2-1.0) mg/dL Direct Bilirubin 0.1 (0.0-0.2) mg/dL AST 26 (15-37) U/L ALT 28 (12-78) U/L Alkaline Phosphatase 77 (46-116) IU/L Total Protein 6.2 L (6.4-8.2) g/dL Albumin 2.8 L (3.4-5.0) g/dL Result Diagrams: 05/06/21 08:03 05/07/21 07:17 Wyatt Results Last 24 hrs: Microbiology 05/03/21 13:20 Aerobic Blood Culture - Preliminary Blood - Venous NO GROWTH AFTER 4 DAYS Anaerobic Blood Culture - Preliminary NO GROWTH AFTER 4 DAYS 05/03/21 13:20 Aerobic Blood Culture - Preliminary Blood - Venous - Lab Draw NO GROWTH AFTER 4 DAYS Anaerobic Blood Culture - Preliminary NO GROWTH AFTER 4 DAYS Sepsis Event Note - Evaluation Sepsis Screening Result: No Definite Risk - Focused Exam Vital Signs: Vital Signs Temp Pulse Resp BP Pulse Ox 05/07/21 09:28 93 L 05/07/21 07:57 36.4 C 77 18 132/80 90 L - Problem List & Annotations (1) Acute hypoxemic respiratory failure due to COVID-19 SNOMED Code(s): 691041823 Code(s): U07.1 - COVID-19; J96.01 - ACUTE RESPIRATORY FAILURE WITH HYPOXIA Status: Acute Current Visit: Yes Annotation/Comment:: 05/06/2021 improving, less desatuation with ambulating. Good while in bed and sleepiing at 2 lpm. Will attempt a few trials of oxygen off today. Have talked with discharge planning about home oxygen. continue other cares. Day 4 of remdesivir and decadron treatment, plan for home discharge tomorrow after treatment 05/05/2021 doing well, no increase oxygen needs. check labs today for concern for LFT changes stable, receiving decadron and remdesivir, isolating well (2) Acute respiratory failure SNOMED Code(s): 78780257 Code(s): J96.00 - ACUTE RESPIRATORY FAILURE, UNSP W HYPOXIA OR HYPERCAPNIA Status: Acute Current Visit: Yes (3) COVID-19 SNOMED Code(s): 301306235 Code(s): U07.1 - COVID-19 Status: Acute Current Visit: Yes Annotatio n/Comment:: Using oxygen, but destas when up to bathroom with frequent diarrhea episodes. Staff are working with home medical to determine patient eligibility and find alterntive funding for home oxygen since patient does not have Medicaid and her Medicare will not cover this. Has finished Remdesvir course now, but unable to go home without oxygen. Will continue steroids as long as she is requiring oxygen. 05/06/2021. doing well, add motrin for headaches, trial off of oxygen if possible for short amounts today 05/05/2021 labs today, continue cares. Plan for home on 05/07, will need home O2 continue cares. Labs tomorrow. maintaining decent O2 sats - Problem List Review Problem List Initiated/Reviewed/Updated: Yes - Plan Plan:: -Continue planning for home oxygen alternatives, but patient is not ready to be without oxygen. -Prescriptions for meds were sent to the [facility] pharmacy in [place] and those meds were sent to patient home. She gets her meds on a sliding scale fee program. -Staff looking for alternative funding for home oxygen, but patient cannot pay for this.
[2021-05-08] MEDS: Benzonatate 100 MG Cap PO PRN ×2 (01:59→13:05)
[2021-05-08] MEDS: Acetaminophen 325 MG Tab PO PRN (01:59)
[2021-05-08] MEDS: Enoxaparin 40 MG/0.4 ML Syringe SUBCUT SCH (08:01)
[2021-05-08] MEDS: Dexamethasone 2 MG Tab PO SCH (08:02)
[2021-05-08] MEDS: Potassium Chloride 20 MEQ Tab.ER PO SCH (08:03)
[2021-05-08] MEDS: Hydrochlorothiazide 25 MG Tab PO SCH (08:03)
[2021-05-08] MEDS: atorvaSTATin 10 MG Tab PO SCH (08:04)
--- NOTE | 2021-05-08 12:18 | PCM.DCSUM1 ---
Discharge Summary - Hospital Course HPI Initial Comments: Patient presented to the ER on 05-03-2021 with symptoms. "Patient has been ill with upper respiratory symptoms, cough, fever to 102, sinus congestion and loss of taste and smell for the last 6 days. She has been treating it with over the counter medications and tylenol. Last dose yesterday as her stomach has become upset from this and she is having dry heaves to even water. No diarrhea, no abdominal pain, and still making urine. Has not had covid, has not had vaccine. He son is also sick, but after she was. Has copd and has a rescue inhaler. Not on cpap or oxygen." Brief History: Patient admitted to Acute care and started on course of Remdesivir due to her COPD hx. She then completed the 5 days course and was continuing to require oxygen. Her sats remained 88% on room air and less with activity. Patient unable to afford home oxygen and Medicare does not cover this for her. She is wanting to go home without oxygen. Diagnosis: Stroke: No - Discharge Data Discharge Date: 05/08/21 Discharge Disposition: Home, Self-Care 01 Condition: Good - Referral to Home Health Primary Care Physician: HERNÁN Oswald - Discharge Diagnosis/Problem(s) (1) Acute respiratory failure SNOMED Code(s): 54016026 ICD Code: J96.00 - ACUTE RESPIRATORY FAILURE, UNSP W HYPOXIA OR HYPERCAPNIA Status: Acute Current Visit: Yes (2) COVID-19 SNOMED Code(s): 770070255 ICD Code: U07.1 - COVID-19 Status: Acute Current Visit: Yes Problem Details: Wearing oxygen at 2 liters yet, but drops to 87-88% when off. Has been unable to find suitable oxygen for home use due to expense. Patient is wanting to go home today and will go without any oxygen. Finished the 5th Remdesivir dose yesterday. Will go home on steroids for another 5 days. - Patient Instructions Diet: Usual Diet as Tolerated Activity: As Tolerated Driving: May Drive Today Showering/Bathing: May Shower Other/Special Instructions: Follow up with your PCP in [place] in the next week for recheck. - Discharge Plan Prescriptions/Med Rec: Albuterol Sulfate [Albuterol Sulfate Hfa] 2 inh IH Q4HR PRN #18 [email or web address] PRN Reason: Shortness Of Breath dexAMETHasone [Decadron] 6 mg PO DAILY 5 Days #5 tablet Benzonatate [Tessalon Perle] 100 mg PO Q6H PRN #60 capsule PRN Reason: Cough Ondansetron [Zofran ODT] 4 mg PO Q6H PRN #30 tab.dis PRN Reason: Nausea Home Medications: Home Meds atorvaSTATin Calcium [Atorvastatin Calcium] 20 mg PO DAILY 05/03/21 [History] hydroCHLOROthiazide [Hydrochlorothiazide] 25 mg PO DAILY 05/03/21 [History] Albuterol Sulfate [Albuterol Sulfate Hfa] 2 inh IH Q4HR PRN #18 [email or web address] 05/06/21 [Rx] Benzonatate [Tessalon Perle] 100 mg PO Q6H PRN #60 capsule 05/06/21 [Rx] Ondansetron [Zofran ODT] 4 mg PO Q6H PRN #30 tab.dis 05/06/21 [Rx] dexAMETHasone [Decadron] 6 mg PO DAILY 5 Days #5 tablet 05/06/21 [Rx] Acetaminophen [Tylenol] 650 mg PO Q4H PRN tablet 05/08/21 [Rx] Loperamide [Imodium AD] 2 mg PO Q4H PRN tablet 05/08/21 [Rx] Ondansetron [Zofran ODT] 4 mg PO Q4H PRN tab.dis 05/08/21 [Rx] Potassium Chloride [Klor-Con M20] 40 meq PO DAILY tab.er 05/08/21 [Rx] atorvaSTATin [Lipitor] 20 mg PO DAILY tablet 05/08/21 [Rx] bisacodyL [Dulcolax] 5 mg PO DAILY PRN tablet 05/08/21 [Rx] dexAMETHasone [Dexamethasone] 6 mg PO DAILY tablet 05/08/21 [Rx] Oxygen Therapy Mode: Nasal Cannula Maintain SpO2% greater than: 90 Forms: ED Department Discharge Referrals: PCP,None [Ordering Only Provider] - - Discharge Summary/Plan Comment DC Time >30 min.: Yes Total # of Minutes for Discharge Time: 45 minutes Discharge Summary/Plan Comment: >50% of the discharge time spent coordinating outpatient cares. - Patient Data Vitals - Most Recent: Last Vital Signs Temp 36.4 C 05/08/21 08:00 Pulse 80 05/08/21 08:00 Resp 20 05/08/21 08:00 BP 141/80 H 05/08/21 08:00 Pulse Ox 90 L 05/08/21 08:00 Weight - Most Recent: 99.79 kg I&O - Last 24 hours: Intake & Output 05/07/21 05/08/21 05/08/21 22:59 06:59 14:59 Intake Total 210 450 Balance 210 450 Lab Results - Last 24 hrs: Laboratory Results - last 24 hr 05/08/21 Range/Units 07:07 Sodium 142 (136-145) mmol/L Potassium 4.7 (3.5-5.1) mmol/L Chloride 107 (98-107) mmol/L Carbon Dioxide 31.0 (21.0-32.0) mmol/L Anion Gap 4.0 L (7-15) meq/L BUN 29 H (7-18) mg/dL Creatinine 1.08 (0.51-1.17) mg/dL Est Cr Clr Drug Dosing 44.25 mL/min Estimated GFR (MDRD) 51 mL/min Glucose 117 H (70-99) mg/dL Calcium 8.5 (8.5-10.1) mg/dL Total Bilirubin 0.4 (0.2-1.0) mg/dL AST 25 (15-37) U/L ALT 30 (12-78) U/L Alkaline Phosphatase 78 (46-116) IU/L Total Protein 6.3 L (6.4-8.2) g/dL Albumin 2.9 L (3.4-5.0) g/dL BAN Results - Last 24 hrs: Microbiology 05/03/21 13:20 Aerobic Blood Culture - Preliminary Blood - Venous NO GROWTH AFTER 4 DAYS Anaerobic Blood Culture - Preliminary NO GROWTH AFTER 4 DAYS 05/03/21 13:20 Aerobic Blood Culture - Preliminary Blood - Venous - Lab Draw NO GROWTH AFTER 4 DAYS Anaerobic Blood Culture - Preliminary NO GROWTH AFTER 4 DAYS Med Orders - Current: Current Medications Acetaminophen (Acetaminophen 325 Mg Tab) 650 mg PO Q4H PRN PRN Reason: Pain (Mild 1-3)/fever Last Admin: 05/08/21 01:59 Dose: 650 mg Documented by: Albuterol (Albuterol 6.7 Gm Inhaler) 0 gm INH Q2H PRN PRN Reason: Dyspnea Atorvastatin Calcium (Atorvastatin 10 Mg Tab) 20 mg PO DAILY [facility] Last Admin: 05/08/21 08:04 Dose: 20 mg Documented by: Benzonatate (Benzonatate 100 Mg Cap) 100 mg PO Q6H PRN PRN Reason: Cough Last Admin: 05/08/21 01:59 Dose: 100 mg Documented by: Bisacodyl (Bisacodyl 5 Mg Tab) 5 mg PO DAILY PRN PRN Reason: Constipation Dexamethasone (Dexamethasone 2 Mg Tab) 6 mg PO DAILY [facility] Last Admin: 05/08/21 08:02 Dose: 6 mg Documented by: Enoxaparin Sodium (Enoxaparin 40 Mg/0.4 Ml Syringe) 40 mg SUBCUT Q12H [facility] Last Admin: 05/08/21 08:01 Dose: 40 mg Documented by: Hydrochlorothiazide (Hydrochlorothiazide 25 Mg Tab) 25 mg PO DAILY [facility] Last Admin: 05/08/21 08:03 Dose: 25 mg Documented by: Ibuprofen (Ibuprofen 400 Mg Tab) 400 mg PO Q6H PRN PRN Reason: Pain Last Admin: 05/06/21 20:33 Dose: 400 mg Documented by: Loperamide HCl (Loperamide 2 Mg Tab) 2 mg PO Q4H PRN PRN Reason: Diarrhea Last Admin: 05/07/21 12:37 Dose: 2 mg Documented by: Ondansetron HCl (Ondansetron 4 Mg Tab.Dis) 4 mg PO Q4H PRN PRN Reason: Nausea/Vomiting Last Admin: 05/06/21 20:33 Dose: 4 mg Documented by: Potassium Chloride (Potassium Chloride 20 Meq Tab.Er) 40 meq PO DAILY [facility] Last Admin: 05/08/21 08:03 Dose: 40 meq Documented by: Sodium Chloride (Sodium Chloride 0.9% 10 Ml Syringe) 10 ml FLUSH ASDIRECTED PRN PRN Reason: Keep Vein Open Last Admin: 05/07/21 08:01 Dose: 10 ml Documented by: Sodium Chloride (Sodium Chloride 0.9% 10 Ml Syringe) 10 ml FLUSH ASDIRECTED PRN PRN Reason: Keep Vein Open Discontinued Medications Enoxaparin Sodium (Enoxaparin 40 Mg/0.4 Ml Syringe) 40 mg SUBCUT Q12H [facility] Last Admin: 05/04/21 15:42 Dose: 40 mg Documented by: Sodium Chloride (Normal Saline) 1,000 mls @ 1,000 mls/hr IV ASDIRECTED MARY Last Admin: 05/03/21 13:46 Dose: 1,000 mls/hr Documented by: Remdesivir 200 mg/ Sodium (Chloride) 250 mls @ 250 mls/hr IV ONETIME ONE Stop: 05/03/21 15:30 Last Admin: 05/03/21 15:37 Dose: 250 mls/hr Documented by: Remdesivir 100 mg/ Sodium (Chloride) 100 mls @ 100 mls/hr IV Q24H MARY Stop: 05/07/21 15:59 Last Admin: 05/07/21 13:59 Dose: 100 mls/hr Documented by: Iopamidol (Iopamidol 755 Mg/Ml 100 Ml Bottle) 100 ml IVPUSH ONETIME STA Stop: 05/03/21 13:38 Last Admin: 05/03/21 14:31 Dose: 100 ml Documented by: Potassium Chloride (Potassium Chloride 10 Meq Tab.Er) 40 meq PO ONETIME ONE Stop: 05/03/21 14:32 Last Admin: 05/03/21 15:17 Dose: 40 meq Documented by: Sodium Chloride (Sodium Chloride 0.9% 10 Ml Syringe) 30 ml FLUSH DAILY@1600 [facility] Stop: 05/07/21 16:01 Last Admin: 05/07/21 15:01 Dose: 30 ml Documented by:
== END 2021-05-08 13:20 | disposition home or self-care (01) | DRG 177 ==
LOC: LL.ED 12:09 → LL.MS 14:00
PROVIDERS: ADMIT Physician Assistant; ATTEND Physician Assistant
PROC: 3E0DX3Z Introduction of Anti-inflammatory into Mouth and Pharynx, External Approach (ICD-10-PCS; principal; 2021-05-03)
PROC: XW043E5 Introduction of Remdesivir Anti-infective into Central Vein, Percutaneous Approach, New Technology Group 5 (ICD-10-PCS; principal; 2021-05-03)
PROC: 8E0ZXY6 Isolation (ICD-10-PCS; principal; 2021-05-03)
DX: U07.1 COVID-19 (principal); J96.01 Acute respiratory failure with hypoxia; E78.00 Pure hypercholesterolemia, unspecified; I10 Essential (primary) hypertension; E87.6 Hypokalemia; J44.9 Chronic obstructive pulmonary disease, unspecified; Z79.899 Other long term (current) drug therapy; Z87.891 Personal history of nicotine dependence
CPT/HCPCS: 36415; 71046; 80053; 83605; 84484; 85025; 85379; 86140; 87040 ×2; 87426; 93005; 99285; J7030; 71045; 71275; 81001; 82248; 83735; 93010; 99223; 99232; 99233; 99239; A9270-GY; J1650; J7050; J8540; Q9967

== ENCOUNTER 2021-10-29 18:20 | Emergency (ER) | payer MEDICAID, MEDICARE ==
[2021-10-29] MEDS: Lidocaine 1% 5 ML VIAL INJECT ONE (18:35)
[2021-10-29] MEDS: Diphtheria,Pertussis(Acell),Tetanus Vaccine 0.5 ML Syringe IM ONE (19:03)
== END 2021-10-29 19:20 | disposition home or self-care (01) ==
LOC: LL.ED 18:20
DX: S61.012A Laceration without foreign body of left thumb without damage to nail, initial encounter (principal); Z23 Encounter for immunization; I10 Essential (primary) hypertension; E66.9 Obesity, unspecified; E78.00 Pure hypercholesterolemia, unspecified; Z79.899 Other long term (current) drug therapy; W26.0XXA Contact with knife, initial encounter
CPT/HCPCS: 12001; 90471; 90715; 99282-25; 99283

== ENCOUNTER 2022-04-11 14:35 | Emergency (ER) | payer MEDICAID ==
[2022-04-11] MEDS ORDERED: Lidocaine 1% 5 ML VIAL INJECT ONE (14:37)
[2022-04-11] MEDS ORDERED: Bupivacaine 0.5% 10 ML SDV INJECT ONE (14:38)
[2022-04-11] MEDS ORDERED: methylPREDNISolone Acetate 40 MG/ML SDV IM ONE (14:38)
== END 2022-04-11 15:50 | disposition home or self-care (01) ==
LOC: LL.ED 14:35
DX: M54.2 Cervicalgia (principal); E78.00 Pure hypercholesterolemia, unspecified; I10 Essential (primary) hypertension; J44.9 Chronic obstructive pulmonary disease, unspecified; Z86.16 Personal history of COVID-19; Z79.899 Other long term (current) drug therapy
CPT/HCPCS: 20552; 96372; 99283; 99283-25; J1030; J3490